=== PATIENT | male | born 1970 | race Caucasian/White ===

== ENCOUNTER 2024-12-21 21:27 | Emergency (ER) | payer OTHER, SELFPAY ==
[2024-12-21] VITALS (9 sets, daily range): BP systolic 98–115; BP diastolic 55–61; PULSE 92–99; RESP 16–19; TEMP 37.2; O2SAT 92–99; BMI 25.7
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
--- NOTE | 2024-12-21 22:28 | DI.CT.S_ITS ---
PROCEDURE: CT HEAD/BRAIN WO CON INDICATIONS: head trauma etoh confusion TECHNIQUE: Noncontrast 4.5 mm thick angled axial sections acquired from the foramen magnum to the vertex, with coronal and sagittal reformats. For radiation dose reduction, the following was used: automated exposure control, adjustment of mA and/or kV according to patient size. COMPARISON: [facility], CT, CT HEAD WITHOUT CONTRAST, 05/12/2023, 20:45. FINDINGS: Image quality: Diagnostic. CSF spaces: Basal cisterns are patent. No extra-axial fluid collections. Ventricles are normal in size and shape. Brain: No midline shift. No intracranial mass effect or hemorrhage. Xavier- white matter interface is normal. Skull and face: Calvarium and visualized facial bones are intact, without suspicious lesions. Sinuses: Visualized sinuses and mastoids are clear. IMPRESSION: No acute intracranial pathology. Dictated by: Alexis Pereyra M.D. on 12/21/2024 at 23:03 Approved by: Alexis Pereyra M.D. on 12/21/2024 at 23:05
--- NOTE | 2024-12-21 22:29 | DI.CT.S_ITS ---
PROCEDURE: CT CERVICAL SPINE WO CON INDICATIONS: head trauma, etoh confusion TECHNIQUE: Noncontrast 3 mm thick sections acquired from the skull base to the T4 level. Sagittal and coronal reformats were then constructed. For radiation dose reduction, the following was used: automated exposure control, adjustment of mA and/or kV according to patient size. COMPARISON: None. FINDINGS: Image quality: Excellent. Bones: No fractures or dislocations. Degenerative changes of the cervical spine. Visualized superior ribs are intact. Soft tissues: Prevertebral soft tissues are normal in thickness. No paravertebral hematomas. No apical pneumothoraces. IMPRESSION: No displaced fracture or traumatic subluxation. Dictated by: Alexis Pereyra M.D. on 12/21/2024 at 23:05 Approved by: Alexis Pereyra M.D. on 12/21/2024 at 23:07
--- NOTE | 2024-12-21 22:34 | PC.NURSE ---
Pt to imaging via Ed stretcher with nursery technician
[2024-12-21 22:52] LABS: Add Manual Diff / Slide Review NO; Hematocrit 38.4 % (41-53); Hemoglobin 13.2 g/dL (13.5-17.5); Lymphocytes Absolute Auto 1300 /uL (1100-4500); Mean Corpuscular HGB Conc 34.5 % (30-36); Mean Corpuscular Hemoglobin 35.2 PG (26-34); Mean Corpuscular Volume 102.0 fL (80-100); Platelet Count 362 X10^3/uL (150-400)
[2024-12-21] MEDS: SODIUM CHLORIDE 0.9% 1,000 ML 1000 ML IV (22:56)
[2024-12-21] MEDS: THIAMINE 200 MG in SODIUM CHLORIDE 0.9% 100 ML 408 MG IV (22:56)
[2024-12-21 22:57] LABS: Alanine Aminotransferase 73 IU/L (<50); Albumin 4.3 g/dL (3.5-5.0); Albumin Globulin Ratio 1.5 (1.0-2.8); Alkaline Phosphatase 59 U/L (38-126); Blood Urea Nitrogen 11 mg/dL (9-20); Calcium 8.3 mg/dL (8.4-10.2); Carbon Dioxide 24 mmol/L (22-32); Chloride 107 mmol/L (98-107); Estimated Glomerular Filt Rate > 60 mL/min (>60); Globulin 2.8 g/dL (1.7-4.1); Glucose 108 mg/dL (70-99); HEMOLYSIS 19 (0-50); Lipase 51 U/L (23-300); Magnesium 1.9 mg/dL (1.6-2.3); Potassium 4.2 mmol/L (3.4-5.1); Sodium 142 mmol/L (137-145); Total Protein 7.1 g/dL (6.3-8.2)
[2024-12-21 23:04] LABS: Ethanol (ETOH) 325 mg/dL (<10)
[2024-12-22] VITALS (32 sets, daily range): BP systolic 109–140; BP diastolic 58–82; PULSE 77–104; RESP 18; O2SAT 90–100
[2024-12-22 02:17] LABS: Ur Creatinine Normal (Normal); Ur Specific Gravity Normal (Normal); Urine MDMA Negative (Negative); Urine Methamphetamines Negative (Negative); Urine THC Negative (Negative); Urine Tricyclic Antidepressant Negative (Negative); Urine pH Normal (Normal)
[2024-12-22 05:28] LABS: Ethanol (ETOH) 166 mg/dL (<10)
--- NOTE | 2024-12-22 07:16 | PC.NURSE ---
Patient woke and took himself off vital equipment. Patient states he needed to use restroom. Patient already standing. Patient was able to independently ambulate to restroom without any apparent impaired gait.
--- NOTE | 2024-12-22 09:28 | PC.NURSE ---
Pt lying back in [place]. Appears in NAD. Eyes closed, assume asleep.
--- NOTE | 2024-12-22 09:55 | PC.NURSE ---
Pictures of wounds taken. Bacitracin applied to open areas and occlusive petroleum gauze applied over wounds. Pt tolerated well.
[2024-12-22] MEDS: BACITRACIN 28 GM OINT 1 APPLIC TOP (10:16)
[2024-12-22] MEDS: ONDANSETRON 4 MG/2 ML INJ IV (11:35)
[2024-12-22] MEDS: KETOROLAC 30 MG/ML VIAL 15 MG IV (11:35)
--- NOTE | 2024-12-22 11:40 | PC.NURSE ---
Pt reports feeling nauseated and having pain to lower back. Dr Costa notified, verbal orders received.
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
--- NOTE | 2024-12-22 16:14 | PC.NURSE ---
Patient unable to get to rehab with own funding. Patient is homeless. This RN signed taxi voucher. Patient to discharge at 1700 to go to [facility].
--- NOTE | 2024-12-22 16:43 | CM.SWNOTE ---
ED MEDICAL LAB ASSISTANT Note: ED MEDICAL LAB ASSISTANT initiated bed search for ETOH detox. MEDICAL LAB ASSISTANT calls [facility], it was reported that there are beds available. MEDICAL LAB ASSISTANT calls [facility], it was reported that there are beds available, requested pt to complete phone screening with Intake. MEDICAL LAB ASSISTANT sent packet for review per pt preference. 1445: MEDICAL LAB ASSISTANT was notified that pt was accepted at [facility] and will accept at anytime. clinic lpn coordinating for [facility]i transport with [employer]. MEDICAL LAB ASSISTANT provided completed taxi voucher form. Plan: Anticipating dc to [facility] for detox via [facility] with taxi voucher. RONI Rea
== END 2024-12-22 17:00 | disposition home or self-care (01) ==
PROVIDERS: Emergency Medicine; Emergency Provider Family Medicine
DX: F10.129 Alcohol abuse with intoxication, unspecified (principal); Y90.8 Blood alcohol level of 240 mg/100 ml or more; T22.10XA Burn of first degree of shoulder and upper limb, except wrist and hand, unspecified site, initial encounter
CPT/HCPCS: 36415; 70450; 72125; 80053; 80305; 80320; 83690; 83735; 85025; 96365; 96375; 99284; J1885; J2405; J2560

== ENCOUNTER 2025-02-19 11:42 | Emergency (ER) | payer OTHER, SELFPAY ==
[2025-02-19 11:45] VITALS: BP 131/71; PULSE 118; RESP 15; TEMP 37.1; O2SAT 91; BMI 26.4
[2025-02-19 11:46] VITALS: PULSE 118; O2SAT 91
--- NOTE | 2025-02-19 11:54 | EKG_ITS ---
[place] [id number] [place] [id number] Test Date: 2025-02-19 Pat Name: Chester Cooper Department: [facility] Room: Gender: Male Psychology Tech: : 1970 Requested By: Order Number: [id number] Reading MD: Drew Myers Measurements Intervals [place] Rate: 111 P: 54 NH: 152 QRS: 24 QRSD: 82 T: 76 QT: 332 QTc: 451 Interpretive Statements Sinus tachycardia Cannot rule out Anterior infarct , age undetermined Electronically Signed On 02-19-2025 18:22:55 PDT by Drew Myers
[2025-02-19 11:56] VITALS: BP 104/60; PULSE 110; RESP 14; O2SAT 91
[2025-02-19 12:00] VITALS: BP 96/53; PULSE 108; RESP 17; O2SAT 95
--- NOTE | 2025-02-19 12:34 | ED_ITS ---
HPI - Alcohol General Chief Complaint: Toxicology Problem Stated Complaint: feeling unwell Time Seen by Provider: 02/19/25 11:48 Source: EMS Mode of arrival: EMS History of Present Illness HPI narrative: 54-year-old male history of ETOH use disorder presents via EMS for evaluation of altered mental status. Patient was reported to be found sleeping in the local fire department lawn and transported to the emergency department. Patient a dmits frequent EtOH, not daily. Reports having drink several beers today. Denies any drugs. He does not recall being unresponsive. He is requesting discharge. He has no physical complaints. He denies ETOH withdrawal history or withdrawal symptoms at this time. He feels well and would like to return to the [place]way [place] he lives on the [place] Related Data Previous Rx's ?Medication ?Instructions ?Recorded bacitracin zinc 500 unit/gram 1 applic topical TID #14 .2 grams 12/22/24 topical ointment Allergies Allergy/AdvReac Type Severity Reaction Status Date / Time aspartame (From [facility] Allergy Verified 02/19/25 11:50 Aspartame) Review of Systems Review of Systems Narrative: Pertinent ROS obtained and negative except as stated in HPI Patient History Social History Smoking Status: Unknown if ever smoked Smoking Status: Unknown if ever smoked Exam Initial Vital Signs Initial Vital Signs: Vital Signs Temperature 98.7 F 02/19/25 11:45 Pulse Rate 118 H 02/19/25 11:45 Respiratory Rate 15 02/19/25 11:45 Blood Pressure 131/71 02/19/25 11:45 Pulse Oximetry 91 02/19/25 11:45 Oxygen Delivery Method Room Air 02/19/25 11:45 Constitutional: 54-year-old male sitting upright on the bed, anxious appearing, diaphoretic Head: NCAT Cardiovascular: Tachycardic, appears well perfused Pulmonary: normal effort, clear breath sounds Extremities: No LE edema, normal ROM no gross deformity MSK: No midline C-spine tenderness Skin: warm Neurological: Alert and oriented x3, normal sensation, moves all extremities well, pupils equal round reactive to light Course Orders Ordered: ED Orders 02/19/25 11:54 EKG-12 Lead Stat Vital Signs Vital signs: Vital Signs - 8 hr 02/19/25 11:45 02/19/25 11:46 02/19/25 11:56 Temperature 98.7 F Pulse Rate 118 H 118 H Respiratory Rate 15 Blood Pressure 131/71 104/60 Pulse Oximetry 91 91 Oxygen Delivery Method Room Air 02/19/25 11:56 02/19/25 12:00 02/19/25 12:00 Temperature Pulse Rate 110 H 108 H Respiratory Rate 14 17 Blood Pressure 96/53 L Pulse Oximetry 91 95 Oxygen Delivery Method MDM - Alcohol MDM Narrative Medical decision making narrative: This is a 54-year-old male who presents via EMS after was found sleeping in the lawn of the local fire department. He was found to be altered, had admitted to drinking EtOH. Patient on my assessment is requesting discharge. He does admit to drinking several beers today but denies daily EtOH and withdrawal syndrome. Denies drugs or other substances. He has no physical complaints. He would like to return to the [place] he lives as he is currently homeless. Patient noted to be tachycardic and diaphoretic. He has no focal neurologic deficits no external signs of trauma, moves all extremities well, no C-spine tenderness. My impression of this patient is that he is suffering EtOH withdrawal. I did ask this patient to stay such that I could further evaluate the etiology of his tachycardia and ensure no other toxidrome present, treat supportively, connect with medical apparatus model maker. Patient is agreeable to speak with social services specialist regarding ETOH use but declines any other workup or evaluation. Patient does have capacity to make his medical decisions at this time as he is clinically sober, conversive, understands the risks benefits, oriented x4. Patient is discharged against medical advice after meeting with social services specialist. He has a bus pass to get to his half-way or he currently resides Discharge Plan Departure Patient Disposition: Left Against Medical Advice Clinical Impression: Alcoholic intoxication, Alcohol withdrawal syndrome Instructions: DI for Alcohol Use Disorder Activity Restrictions/Additional Instructions: Today you were brought in by EMS after was found in the community. Please be advised you are leaving against medical advice as we are foregoing any kind of medical evaluation or workup today. Please follow up with resources provided to you by social services specialist. You may return to the emergency department any time if you decide you would like to be evaluated or if you feel that you need assistance with medical detox Prescriptions: No Action bacitracin zinc 500 unit/gram ointment 1 applic topical TID Qty: 14.2 0RF Stand Alone Forms: Patient Portal/API, Against Med. Advice ([place])
--- NOTE | 2025-02-19 12:36 | PC.NURSE ---
This RN responded to patient alarm going. Upon arriving patient is actively taking off all vital equipment and leads. Patient expresses desire to leave. Patient took out their own IV. Preceptee RN covered IV pullout location with adryan. Patient provider is informed and went to talk to patient.
--- NOTE | 2025-02-19 12:46 | CM.SWNOTE ---
ED GOLF CLUB FACER Note Patient presents to ED via EMS due to concern for ETOH intoxication, patient found in front of fire department on ground not feeling well. Patient informs RN that he wants to leave ED prior to medical evaluation. Patient chooses to leave AMA. RN informs GOLF CLUB FACER that patient is interested in sober living resources. GOLF CLUB FACER enters room upon patient's AMA discharge and provides patient with sober living [facility] options and [facility] resources. Patient presents as A/Ox4, calm, cooperative and communicate. Patient endorses he has access to the bus via his bus pass and endorses plans to go to the [place]. GOLF CLUB FACER inquires if patient is connected with [facility] and patient endorses he has worked with Ofelia and Renuka, Patient gives consent to reach out to them regarding patient's presentation to the ED. GOLF CLUB FACER contacted Ofelia- manager case management at [facility] (ph. # [phone]), GOLF CLUB FACER leaves and informs her of patient's presentation to ED and patient's interest in sober living at this time. Patient left AMA with resources for [facility] services and sober living options. [place], POKER PROP PLAYER
== END 2025-02-19 12:44 | disposition left against medical advice (07) ==
PROVIDERS: Emergency Provider Student in an Organized Health Care Education/Training Program
DX: F10.129 Alcohol abuse with intoxication, unspecified (principal); F10.139 Alcohol abuse with withdrawal, unspecified; R00.0 Tachycardia, unspecified
CPT/HCPCS: 93005; 99282; 99283